=== PATIENT | female | born 1995 | race Caucasian/White ===

== ENCOUNTER 2025-03-27 17:10 | Emergency (ER) | payer OTHER ==
[2025-03-27 18:04] LABS: #Basophils Less than 0.03 10x3/uL (0.0-0.2); #Eosinophils 0.13 10x3/uL (0.0-0.5); #Monocytes 0.59 10x3/uL (0.0-1.1); #Neutrophils 8.77 10x3/uL (1.5-8.4); %Basophils 0.2 % (0.0-2.0); %Eosinophils 1.1 % (0.0-6.0); %Lymphocytes 19.5 % (18.0-47.0); %Monocytes 5.0 % (0.0-10.0); %Neutrophils 73.9 % (40.0-75.0); Hematocrit 34.2 % (34.9-44.5); Hemoglobin 11.9 g/dL (12.0-15.5); Mean Corpuscular Hemoglobin 29.9 pg (27.0-33.0); Mean Corpuscular Volume 85.9 fL (81.6-98.3); Platelet Count 296 10x3/uL (150-450); Red Blood Cell (RBC) Count 3.98 10x6/uL (3.90-5.03); White Blood Cell (WBC) Count 11.85 10x3/uL (3.5-10.5)
[2025-03-27 18:20] LABS: ALT (SGPT) 9 U/L (Less than 34); AST (SGOT) 14 U/L (11-34); Albumin 3.2 g/dL (3.1-4.5); Alkaline Phosphatase 64 U/L (40-110); Anion Gap 12 mmol/L (10-20); BUN (Urea Nitrogen) 7 mg/dL (7.0-18.7); Bilirubin, Total 0.2 mg/dL (0.3-1.2); Calc. Creatinine Clearance 0 mL/min (70-130); Calcium 9.0 mg/dL (7.8-10.44); Carbon Dioxide 22 mmol/L (22-29); Chloride 106 mmol/L (98-107); Globulin 3.7 g/dL (2.4-3.5); Glucose 109 mg/dL (70-105); Potassium 3.7 mmol/L (3.5-5.1); Sodium 136 mmol/L (136-145)
[2025-03-27] MEDS ORDERED: diphenhydrAMINE 50 MG/ML VIAL ONE (18:47)
[2025-03-27] MEDS ORDERED: Metoclopramide HCl 10 MG (2 mL) VIAL ONE (18:47)
[2025-03-27 20:17] LABS: Glucose, Urine (Dipstick) Normal (Negative); Leukocyte 25 (Negative); Protein, Urine (Dipstick) 30 mg/dl (Neg-Trace); Specific Gravity, Urine 1.015 (1.005-1.030)
[2025-03-27 20:35] LABS: Bacteria/HPF 2+ HPF (None Seen); CAUTI Indications for Culture Pregnancy; RBC/HPF None Seen HPF (0-3); Urine Culture Reflex Yes Yes; WBC/HPF 0-3 HPF (0-3)
[2025-03-27] MEDS ORDERED: Acetaminophen 500 MG TAB ONE (21:32)
[2025-03-27] MEDS ORDERED: Dexamethasone 10 MG/ML VIAL ONE (21:36)
[2025-03-27] MEDS ORDERED: Magnesium 2 GM/50 ML BAG (IN WATER) ONE (21:36)
== END 2025-03-27 23:11 | disposition home or self-care (01) ==
LOC: CSHERS 17:10
DX: O99.891 Other specified diseases and conditions complicating pregnancy (principal); K80.20 Calculus of gallbladder without cholecystitis without obstruction; O23.42 Unspecified infection of urinary tract in pregnancy, second trimester; N39.0 Urinary tract infection, site not specified; R51.9 Headache, unspecified; O99.332 Smoking (tobacco) complicating pregnancy, second trimester; Z3A.20 20 weeks gestation of pregnancy
CPT/HCPCS: 36415; 76705; 76815; 80053; 81001; 84702; 85025; 86900; 86901; 87086; 93005; 96365; 96366; 96367; 96375; J1100; J1200; J2765; J3475

== ENCOUNTER 2025-03-29 20:30 | Emergency (ER) | payer OTHER ==
[2025-03-29 21:23] LABS: #Basophils 0.04 10x3/uL (0.0-0.2); #Eosinophils 0.14 10x3/uL (0.0-0.5); #Monocytes 0.58 10x3/uL (0.0-1.1); #Neutrophils 7.12 10x3/uL (1.5-8.4); %Basophils 0.4 % (0.0-2.0); %Eosinophils 1.3 % (0.0-6.0); %Lymphocytes 26.4 % (18.0-47.0); %Monocytes 5.4 % (0.0-10.0); %Neutrophils 66.3 % (40.0-75.0); Hematocrit 33.8 % (34.9-44.5); Hemoglobin 11.5 g/dL (12.0-15.5); Mean Corpuscular Hemoglobin 29.7 pg (27.0-33.0); Mean Corpuscular Volume 87.3 fL (81.6-98.3); Platelet Count 312 10x3/uL (150-450); Red Blood Cell (RBC) Count 3.87 10x6/uL (3.90-5.03); White Blood Cell (WBC) Count 10.73 10x3/uL (3.5-10.5)
[2025-03-29 21:39] LABS: ALT (SGPT) 16 U/L (Less than 34); AST (SGOT) 17 U/L (11-34); Albumin 3.3 g/dL (3.1-4.5); Alkaline Phosphatase 68 U/L (40-110); Anion Gap 12 mmol/L (10-20); BUN (Urea Nitrogen) 8 mg/dL (7.0-18.7); Bilirubin, Total 0.2 mg/dL (0.3-1.2); Calc. Creatinine Clearance 0 mL/min (70-130); Calcium 9.1 mg/dL (7.8-10.44); Carbon Dioxide 24 mmol/L (22-29); Chloride 105 mmol/L (98-107); Globulin 3.3 g/dL (2.4-3.5); Glucose 105 mg/dL (70-105); Lipase 32 U/L (8-78); Magnesium 1.7 mg/dL (1.6-2.6); Potassium 3.8 mmol/L (3.5-5.1); Sodium 137 mmol/L (136-145)
[2025-03-29 21:46] LABS: Troponin I 0.015 ng/mL (< 0.028)
== END 2025-03-29 22:27 | disposition home or self-care (01) ==
LOC: CSHERS 20:30
DX: O99.891 Other specified diseases and conditions complicating pregnancy (principal); R07.89 Other chest pain; R00.2 Palpitations; R55 Syncope and collapse; O99.332 Smoking (tobacco) complicating pregnancy, second trimester; F17.290 Nicotine dependence, other tobacco product, uncomplicated; O34.82 Maternal care for other abnormalities of pelvic organs, second trimester; N83.209 Unspecified ovarian cyst, unspecified side; Z3A.20 20 weeks gestation of pregnancy
CPT/HCPCS: 36415; 71045; 80053; 83690; 83735; 84484; 85025; 93005

== ENCOUNTER 2025-04-24 02:05 | Day surgery (SDC) | payer OTHER ==
[2025-04-24] MEDS ORDERED: hydrALAZINE 20 MG/ML VIAL SLOW IVP PRN (02:26)
[2025-04-24 02:29] VITALS: BMI 52.3
[2025-04-24 03:10] LABS: Glucose, Urine (Dipstick) Normal (Negative); Leukocyte Negative (Negative); Protein, Urine (Dipstick) 15 mg/dl (Neg-Trace); Specific Gravity, Urine 1.030 (1.005-1.030)
[2025-04-24 03:19] LABS: Bacteria/HPF None Seen HPF (None Seen); CAUTI Indications for Culture Pregnancy; RBC/HPF None Seen HPF (0-3); WBC/HPF None Seen HPF (0-3)
[2025-04-24 03:20] LABS: Urine Culture Reflex Yes Yes
== END 2025-04-24 03:59 | disposition home or self-care (01) ==
LOC: CSHLD/OP 02:05
PROVIDERS: ATTEND Obstetrics & Gynecology
DX: O36.8120 Decreased fetal movements, second trimester, not applicable or unspecified (principal); Z3A.23 23 weeks gestation of pregnancy; Z88.8 Allergy status to other drugs, medicaments and biological substances; Z88.5 Allergy status to narcotic agent; Z91.018 Allergy to other foods; Z79.899 Other long term (current) drug therapy
CPT/HCPCS: 81001; 87086; 99282

== ENCOUNTER 2025-04-25 22:59 | Day surgery (SDC) | payer OTHER ==
[2025-04-25] MEDS ORDERED: hydrALAZINE 20 MG/ML VIAL SLOW IVP PRN (23:34)
== END 2025-04-26 02:53 | disposition home or self-care (01) ==
LOC: CSHLD/OP 22:59 → EEVIPCON 22:59 → CSHLD/OP 04-26 02:53
PROVIDERS: ATTEND Obstetrics & Gynecology
DX: O99.891 Other specified diseases and conditions complicating pregnancy (principal); R10.9 Unspecified abdominal pain; Z88.8 Allergy status to other drugs, medicaments and biological substances; Z88.5 Allergy status to narcotic agent; Z91.018 Allergy to other foods; W18.30XA Fall on same level, unspecified, initial encounter; Z3A.23 23 weeks gestation of pregnancy
CPT/HCPCS: 76815; 99282

== ENCOUNTER 2025-05-28 14:42 | Outpatient (CLI) | payer OTHER, MEDICAID | END 2025-05-28 14:43 | disposition home or self-care (01) | LOC: CSHDTY/OP 14:42 | PROVIDERS: ATTEND Obstetrics & Gynecology | DX: Z71.3 Dietary counseling and surveillance (principal); O24.420 Gestational diabetes mellitus in childbirth, diet controlled | CPT/HCPCS: 97802 ==

== ENCOUNTER 2025-06-14 20:55 | Day surgery (SDC) | payer OTHER ==
[2025-06-14 21:19] VITALS: BMI 54.3
[2025-06-14] MEDS ORDERED: hydrALAZINE 20 MG/ML VIAL SLOW IVP PRN (21:30)
[2025-06-14 22:03] LABS: Glucose, Urine (Dipstick) Normal (Negative); Leukocyte Negative (Negative); Protein, Urine (Dipstick) 15 mg/dl (Neg-Trace); Specific Gravity, Urine 1.025 (1.005-1.030)
[2025-06-14 22:12] LABS: Bacteria/HPF 2+ HPF (None Seen); CAUTI Indications for Culture Pregnancy; RBC/HPF 0-3 HPF (0-3); WBC/HPF 0-3 HPF (0-3)
[2025-06-14 22:13] LABS: Mucous/LPF 3+ LPF (<2+)
[2025-06-14 22:15] LABS: Urine Culture Reflex Yes Yes
== END 2025-06-14 22:45 | disposition home or self-care (01) ==
LOC: CSHLD/OP 20:55
PROVIDERS: ATTEND Obstetrics & Gynecology
DX: O36.8130 Decreased fetal movements, third trimester, not applicable or unspecified (principal); O23.43 Unspecified infection of urinary tract in pregnancy, third trimester; O99.213 Obesity complicating pregnancy, third trimester; O24.419 Gestational diabetes mellitus in pregnancy, unspecified control; Z3A.30 30 weeks gestation of pregnancy; Z88.5 Allergy status to narcotic agent; Z91.018 Allergy to other foods; Z88.8 Allergy status to other drugs, medicaments and biological substances; Z79.899 Other long term (current) drug therapy
CPT/HCPCS: 51701; 76819; 81001; 87086; 99284; Q0162